=== PATIENT | male | born 1990 | race Caucasian/White ===

== ENCOUNTER 2018-03-25 09:29 | Emergency (ER) | payer OTHER ==
[2018-03-25 09:46] VITALS: BP 141/65; PULSE 64; RESP 18; TEMP 98.3
--- NOTE | 2018-03-25 09:56 | ED ---
Skin/Abscess/FB HPI - General Chief complaint: Skin/Abscess/Foreign Body Stated complaint: TICK BITES NOT HEALING Time Seen by Provider: 03/25/18 09:50 Source: patient, RN notes reviewed Mode of arrival: ambulatory Limitations: no limitations - History of Present Illness Initial comments: 27-year-old male presented from chief complaint of 2 sores from a tick bite. Patient states his happened in [place] a couple months ago. He states it went away but states that he has to red dots. He states is more in the suprapubic region. Denies any fever, chills or any associated pain. Patient states he has no myalgias or arthralgias. Patient states he has no point other than the sores and wanted him to be checked. - Related Data Previous Rx's Medication Instructions Recorded Doxycycline Monohydrate [Monodox] 100 mg PO Q12HR #20 cap 03/25/18 Allergies Allergy/AdvReac Type Severity Reaction Status Date / Time No Known Allergies Allergy Verified 03/25/18 09:46 Review of Systems ROS Statement: Those systems with pertinent positive or pertinent negative responses have been documented in the HPI. ROS Other: All systems not noted in ROS Statement are negative. Past Medical History Past Medical History: No Reported History History of Any Multi-Drug Resistant Organisms: None Reported Past Surgical History: Appendectomy, Cholecystectomy Past Psychological History: No Psychological Hx Reported Smoking Status: Current every day smoker Past Alcohol Use History: None Reported Past Drug Use History: Marijuana General Exam Limitations: no limitations General appearance: alert, in no apparent distress Head exam: Present: atraumatic, normocephalic, normal inspection Respiratory exam: Present: normal lung sounds bilaterally. Absent: respiratory distress, wheezes, rales, rhonchi, stridor Cardiovascular Exam: Present: regular rate, normal rhythm, normal heart sounds. Absent: systolic murmur, diastolic murmur, rubs, gallop, clicks Skin exam: Present: warm, dry, other (Suprapubic region there are 2 erythematous sores around the hair follicle there is no other rash bubbles or bulls eye ring noted) Course Vital Signs 03/25/18 09:43 Temperature 98.3 F Pulse Rate 64 Respiratory 18 Rate Blood Pressure 141/65 O2 Sat by Pulse 99 Oximetry Medical Decision Making - Medical Decision Making 27-year-old male presented for rashes CVA region. He states is where he had a take. Patient states he pulled it off. Patient has what appears to be a folliculitis. There is never any bull's-eye type rash. Patient will be given instruction to apply warm compresses, clean the area well with dialysis [place] or any other antibacterial soap and to take doxycycline as directed Disposition Clinical Impression: Tick bite, Folliculitis Disposition: HOME SELF-CARE Condition: Stable Instructions: Tick Bite (ED) Additional Instructions: Please return to the Emergency Department if symptoms worsen or any other concerns. Prescriptions: Doxycycline Monohydrate [Monodox] 100 mg PO Q12HR #20 cap Is patient prescribed a controlled substance at d/c from ED?: No Referrals: Yocasta Mejia MD [STAFF PHYSICIAN] - 1-2 days Time of Disposition: 09:56
== END 2018-03-25 10:05 | disposition home or self-care (01) ==
LOC: EC 09:29
DX: L73.9 Follicular disorder, unspecified (principal); S30.861A Insect bite (nonvenomous) of abdominal wall, initial encounter; F17.200 Nicotine dependence, unspecified, uncomplicated; Z90.49 Acquired absence of other specified parts of digestive tract; W57.XXXA Bitten or stung by nonvenomous insect and other nonvenomous arthropods, initial encounter
CPT/HCPCS: 99282